=== PATIENT | male | born 1965 | race Caucasian/White ===

== ENCOUNTER 2021-04-06 13:02 | Emergency (ER) | payer MEDICAID ==
[~2021-04-06 13:02] MED LIST: FAMO-1 PO; IBUP-1984 PO; LACT1CAP57 PO; OMEP-84 PO
== END 2021-04-06 15:17 | disposition left against medical advice (07) ==
LOC: ER 13:03
DX: R10.9 Unspecified abdominal pain (principal); Z53.21 Procedure and treatment not carried out due to patient leaving prior to being seen by health care provider

== ENCOUNTER 2021-07-05 12:58 | Emergency (ER) | payer MEDICAID, OTHER ==
[~2021-07-05] VITALS: Ht 190.5 cm; Wt 100.0 kg
[2021-07-05] MEDS ORDERED: OLANZapine **IM** 10 mg inj. IM ONE (13:15)
[2021-07-05 13:46] LABS: APTT 29 SECONDS (22-32)
[2021-07-05 13:48] LABS: ALANINE AMINOTRANSFERASE 72 U/L (12-78); ALBUMIN 4.1 G/DL (3.4-5.0); ALBUMIN/GLOBULIN RATIO 1.1 (1.1-1.5); ALKALINE PHOSPHATASE 103 IU/L (46-116); ANION GAP 14 (8-16); ASPARTATE AMINO TRANSFERASE 35 U/L (10-37); BILIRUBIN,TOTAL 0.5 MG/DL (0.1-1.0); BLOOD UREA NITROGEN 7 MG/DL (7-18); BUN/CREATININE RATIO 5.6 (5.4-32.0); CALCIUM 9.2 MG/DL (8.5-10.1); CHLORIDE 103 MMOL/L (99-107); CREATININE 1.26 MG/DL (0.60-1.10); GLUCOSE 105 MG/DL (70-104); SODIUM 140 MMOL/L (135-145); TOTAL CARBON DIOXIDE 23.2 MMOL/L (24-32); TOTAL PROTEIN 7.8 G/DL (6.4-8.2); eGFR 60 ML/MIN
[2021-07-05 13:49] LABS: POTASSIUM 3.6 MMOL/L (3.5-5.1)
[2021-07-05 13:53] LABS: BASOPHILS # (AUTO) 0.1 X10'3 (0-0.2); BASOPHILS % (AUTO) 0.8 % (0-1); EOSINOPHILS # (AUTO) 0.2 X10'3 (0-0.9); EOSINOPHILS % (AUTO) 2.2 % (0-6); HEMATOCRIT 46.1 % (42.0-52.0); HEMOGLOBIN 15.7 g/dl (14.0-17.9); LYMPHOCYTES # (AUTO) 3.3 X10'3 (1.1-4.8); LYMPHOCYTES % (AUTO) 29.3 % (21-51); MEAN CORPUSCULAR HEMOGLOBIN 30.4 PG (27.0-31.0); MEAN CORPUSCULAR HGB CONC 34.1 g/dL (33.0-36.5); MEAN CORPUSCULAR VOLUME 89.2 FL (78-98); MONOCYTES # (AUTO) 1.1 X10'3 (0-0.9); MONOCYTES % (AUTO) 9.7 % (2-12); NEUTROPHILS # (AUTO) 6.6 X10'3 (1.8-7.7); PLATELET COUNT 272 X10'3 (140-440); RED BLOOD COUNT 5.17 X10'6 (4.70-6.10); RED CELL DISTRIBUTION WIDTH 12.4 % (11.5-14.5); WHITE BLOOD COUNT 11.4 X10'3 (4.5-11.0)
[2021-07-05] MEDS ORDERED: aspirin 325mg tablet PO ONE (14:15)
[2021-07-05] MEDS ORDERED: iohexol 350MG/ML 100ml bottle IV ONE (14:24)
[2021-07-05] MEDS ORDERED: morphine 4 MG/ML inj SYRINge IV PRN (14:25)
[2021-07-05] MEDS ORDERED: ondansetron/PF 4mg/2ml inj IV PRN (14:25)
[2021-07-05] MEDS ORDERED: magnesium hydroxide 30ml (MOM) UD suspension PO PRN (14:25)
[2021-07-05] MEDS ORDERED: acetaminophen 325mg tablet PO PRN ×2 (14:25)
[2021-07-05] MEDS ORDERED: morphine 2 MG/ML inj. syringe IV PRN (14:25)
[2021-07-05] MEDS ORDERED: normal saline 1000ml 1,000 ML IV SCH (14:25)
[2021-07-05] MEDS ORDERED: POTASSIUM BICARB 20meq eff tab 20 MEQ TABLET.EFF PO PRN ×2 (14:25)
[2021-07-05 14:33] LABS: CLARITY,URINE CLEAR (Clear); COLOR,URINE YELLOW (Yellow); GLUCOSE, URINE NEGATIVE (Neg); KETONES,URINE NEGATIVE (Neg); LEUKOCYTE ESTERASE ,URINE NEGATIVE (Neg); NITRITES, URINE NEGATIVE (Neg); OCCULT BLOOD,URINE NEGATIVE (Neg); PROTEIN,URINE NEGATIVE (Neg); UROBILINOGEN,URINE 0.2 E.U/dL (0.2-1.0)
[2021-07-05 14:40] LABS: UA COLLECTION TYPE NON-SPECIFIED
[2021-07-05 15:20] VITALS: BP 132/91
[2021-07-06] MEDS ORDERED: K and/or MAG REPLACEMENT MC SCH (08:00)
== END 2021-07-05 16:09 | disposition left against medical advice (07) ==
LOC: ER 12:59 → ED HOLD 14:46 → UNDOADMIN 14:46 → CANBEDREQ 15:04
DX: I63.9 Cerebral infarction, unspecified (principal); R20.0 Anesthesia of skin; R07.89 Other chest pain; R06.02 Shortness of breath; Z88.1 Allergy status to other antibiotic agents; Z88.8 Allergy status to other drugs, medicaments and biological substances; Z88.6 Allergy status to analgesic agent; Z79.899 Other long term (current) drug therapy
CPT/HCPCS: 36415; 70450; 70496; 70498; 71045; 80053; 81003; 85025; 85610; 85730; 86885; 86900; 86901; 93005; 96372; 99285; J3490; Q9967